=== PATIENT | female | born 1990 | race Caucasian/White ===

== ENCOUNTER 2017-03-01 15:38 | Inpatient (IN) | payer BC ==
[~2017-03-01] VITALS: Ht 162.6 cm; Wt 74.1 kg
[~2017-03-01 15:38] MED LIST: HYDR-882 PO
[2017-03-03] MEDS ORDERED: OXYTOCIN 30U/ 0.9% NaCL 500ML 500 ML IV PRN (05:02)
[2017-03-03] MEDS: AMPICILLIN 2 GM in SODIUM CHLORIDE 0.9% 100 ML IVPB SCH ×4 (05:02→21:00)
[2017-03-03] MEDS ORDERED: OXYTOCIN 30U/ 0.9% NaCL 500ML 500 ML IV ONE (05:02)
[2017-03-03] MEDS ORDERED: LIDOCAINE 1%, 20ML ONE (05:07)
[2017-03-03] MEDS ORDERED: OXYTOCIN 30U/ 0.9% NaCL 500ML 500 ML ONE (05:08)
[2017-03-03] MEDS ORDERED: MISOPROSTOL 200 MCG TABLET ONE (05:08)
[2017-03-03] MEDS ORDERED: NEWBORN KIT ONE (05:15)
[2017-03-03 05:23] VITALS: BP 122/75
[2017-03-03] MEDS: LACTATED RINGERS 1,000 ML IV SCH ×5 (05:23→21:02)
[2017-03-03] MEDS ORDERED: FENTANYL PF 100 MCG/2ML IVPush PRN (05:30)
[2017-03-03] MEDS ORDERED: CALCIUM CARBONATE 500 MG TAB.CHEW PO PRN ×2 (05:30→18:00)
[2017-03-03] MEDS ORDERED: ONDANSETRON 2MG/ML, 2ML IVPush PRN (05:30)
[2017-03-03] MEDS ORDERED: FENTANYL PF 100 MCG/2ML IV PRN (05:30)
[2017-03-03] MEDS ORDERED: FENTANYL/BUPIV./NS/PF 250 ML EPIDCONT SCH (10:29)
[2017-03-03] MEDS ORDERED: NALOXONE 0.4 MG/ML, 1ML IVPush PRN (10:30)
[2017-03-03] MEDS ORDERED: EPHEDRINE 50 MG/ML, 1ML IVPush PRN (10:30)
[2017-03-03] MEDS ORDERED: LACTATED RINGERS 1,000 ML IVBOLUS PRN (10:30)
[2017-03-03] MEDS ORDERED: BUPIVACAINE/PF 0.25% ONE (10:32)
[2017-03-03] MEDS ORDERED: FENTANYL/BUPIV./NS/PF 250 ML EPIDCONT ONE ×2 (10:32→11:30)
[2017-03-03] MEDS: D5%-LACTATED RINGERS 1,000 ML IV SCH ×3 (12:10→21:02)
[2017-03-03] MEDS ORDERED: ONDANSETRON 2MG/ML, 2ML ONE (13:40)
[2017-03-03] MEDS ORDERED: MISOPROSTOL 200 MCG TABLET PR PRN (18:00)
[2017-03-03] MEDS ORDERED: DIPH,PERTUSS(ACELL),TET VAC/PF NC IM-VACC PRN (18:00)
[2017-03-03] MEDS ORDERED: DOCUSATE 100 MG CAPSULE PO PRN (18:00)
[2017-03-03] MEDS ORDERED: OXYcodone/APAP 5/325MG TABLET PO PRN ×2 (18:00)
[2017-03-03] MEDS ORDERED: ONDANSETRON 2MG/ML, 2ML IV PRN (18:00)
[2017-03-03] MEDS ORDERED: ACETAMINOPHEN 325 MG TABLET PO PRN ×2 (18:00)
[2017-03-03] MEDS ORDERED: MAGNESIUM HYDROXIDE 8%, 30ML UDC PO PRN (18:00)
[2017-03-03] MEDS ORDERED: MEASLES,MUMPS&RUBELLA VACC/PF 0.5 ML SQ-VACC PRN (18:00)
[2017-03-03] MEDS ORDERED: IBUPROFEN 600 MG TABLET PO PRN (18:00)
[2017-03-03] MEDS ORDERED: RHOGAM FROM BLOOD BANK 1 NOTE EA IM/IV ONE (18:00)
[2017-03-03 20:40] VITALS: BP 109/69
[2017-03-03] MEDS: OXYTOCIN 30U/ 0.9% NaCL 500ML 500 ML IV SCH (23:58)
[2017-03-04 00:15] VITALS: BP 109/72
[2017-03-04] MEDS: OXYTOCIN 30U/ 0.9% NaCL 500ML 500 ML IV SCH ×2 (03:55→13:55)
[2017-03-04 04:50] VITALS: BP 111/70
[2017-03-04 08:09] VITALS: BP 113/69
[2017-03-04] MEDS ORDERED: PRENATAL VIT/IRON/FA 1 EACH TABLET PO SCH (09:00)
[2017-03-04 11:41] VITALS: BP 112/74
== END 2017-03-04 17:00 | disposition home or self-care (01) | DRG 775 ==
LOC: LDIP 03-03 04:55 → 2NW 03-03 20:27
PROVIDERS: ADMIT Obstetrics & Gynecology; ATTEND Obstetrics & Gynecology
PROC: 10E0XZZ Delivery of Products of Conception, External Approach (ICD-10-PCS; principal; 2017-03-03)
PROC: 10907ZC Drainage of Amniotic Fluid, Therapeutic from Products of Conception, Via Natural or Artificial Opening (ICD-10-PCS; 2017-03-03)
PROC: 3E033VJ Introduction of Other Hormone into Peripheral Vein, Percutaneous Approach (ICD-10-PCS; 2017-03-03)
PROC: 00HU33Z Insertion of Infusion Device into Spinal Canal, Percutaneous Approach (ICD-10-PCS; 2017-03-03)
PROC: 3E0R3CZ (ICD-10-PCS; 2017-03-03)
DX: O99.824 Streptococcus B carrier state complicating childbirth (principal); O69.1XX0 Labor and delivery complicated by cord around neck, with compression, not applicable or unspecified; Z3A.40 40 weeks gestation of pregnancy; Z37.0 Single live birth; Z28.29 Immunization not carried out because of patient decision for other reason
CPT/HCPCS: 36415; 82803; 85025; 86850; 86900; J0290; J2405; J2590; J3010; J7120; J7121